=== PATIENT | male | born 1985 | race Caucasian/White ===

== ENCOUNTER 2019-07-10 00:07 | Emergency (ER) | payer MEDICAID ==
[~2019-07-10] VITALS: Ht 170.2 cm; Wt 81.2 kg
[2019-07-10 01:14] LABS: BASOPHIL % 0.4 % (0-2); PLATELET COUNT 311 x10^3mcL (130-400); RED CELL DISTRIBUTION WIDTH 12.5 % (11.5-14.5)
[2019-07-10 01:24] LABS: CALCIUM 8.9 mg/dL (8.5-10.1); CARBON DIOXIDE 30.7 mmol/L (21-32); CHLORIDE SERUM 101 mmol/L (98-107); GFR1 > 60 mL/min; GLUCOSE SERUM 88 mg/dL (74-106); POTASSIUM SERUM 3.9 mmol/L (3.5-5.1); SODIUM SERUM 137 mmol/L (136-145)
[2019-07-10 01:28] LABS: ALBUMIN 3.7 g/dL (3.4-5.0); ALT/SGPT 53 U/L (16-63); AST/SGOT 30 U/L (15-37)
[2019-07-10 01:41] LABS: ALKALINE PHOSPHATASE 84 U/L (46-116); BILIRUBIN TOTAL 0.26 mg/dL (0.20-1.00)
[2019-07-10 01:52] VITALS: BP 112/64
[2019-07-10 02:01] LABS: TOTAL PROTEIN, SERUM 8.3 g/dL (6.4-8.2)
== END 2019-07-10 01:52 | disposition home or self-care (01) ==
LOC: ED 00:07
PROVIDERS: Emergency Medicine
DX: R07.89 Other chest pain (principal); F41.9 Anxiety disorder, unspecified; F11.90 Opioid use, unspecified, uncomplicated
CPT/HCPCS: 36415; Q0092

== ENCOUNTER 2020-01-30 15:58 | Emergency (ER) | payer MEDICAID ==
[~2020-01-30] VITALS: Ht 170.2 cm; Wt 77.1 kg
[2020-01-30 16:32] VITALS: Ht 170.2 cm; Wt 77.1 kg
[2020-01-30 17:53] VITALS: BP 134/86
== END 2020-01-30 17:53 | disposition home or self-care (01) ==
LOC: ED 15:58
DX: L03.115 Cellulitis of right lower limb (principal); F11.10 Opioid abuse, uncomplicated
CPT/HCPCS: J2930